=== PATIENT | female | born 2005 | race African-American/Black ===

== ENCOUNTER 2024-12-01 16:00 | Emergency (ER) | payer OTHER, SELFPAY ==
[2024-12-01 16:04] VITALS: BP 109/69
[2024-12-01 16:28] LABS: Hematocrit 40.5 % (37.0-47.0); Hemoglobin 13.4 g/dL (12.0-16.0); Mean Corp Hgb Conc. 33.1 g/dL (33.0-37.0); Mean Corpuscular Volume 84.0 fL (81.0-99.0); Nucleated Red Blood Cells % 0 %; Platelet Count 239 10^3/uL (130-400); Red Cell Dist. Width 12.3 % (11.5-14.5)
[2024-12-01 16:41] LABS: ALT (SGPT) 30 U/L (0-35); AST (SGOT) 21 U/L (14-36); Albumin 4.5 g/dl (3.5-5.0); Alkaline Phosphatase 46 U/L (38-126); Blood Urea Nitrogen 15 mg/dl (7-17); Calcium 9.9 mg/dl (8.4-10.2); Carbon Dioxide 23 mmol/L (22-30); Chloride 109 mmol/L (98-107); Glucose 121 mg/dl (70-99); Potassium 4.1 mmol/L (3.5-5.1); Sodium 137 mmol/L (135-145); Total Protein 7.8 g/dl (6.3-8.2); eGFR > 60.00
[2024-12-01 16:51] LABS: Troponin I < 0.012 ng/ml
--- NOTE | 2024-12-01 18:58 | ED.GENMED ---
History of Present Illness
General
Chief Complaint: Dizziness
Source: patient
Exam Limitations: none
Time Seen by Provider: 12/01/24 18:41
History of Present Illness
History of Present Illness:
19yoF with a history of endometriosis and ADHD presenting for evaluation after a syncopal episode around 8am this morning. Patient was at work this morning when she started to feel nauseous. She ran to the bathroom and had an episode of vomiting.
She then urinated and was leaning forward to put her underwear back on. She started to feel lightheaded and lost consciousness. She denies any preceding chest pain, shortness of breath, or palpitations. She thought her symptoms may be from a
control pill that she recently started 18 days ago. She called her OBGYN and was instructed to go to the ED for evaluation. She is currently asymptomatic and denies any current dizziness.
Phy Exam
General Physical Exam
General Presentation: well appearing and no apparent distress
General Skin: warm and dry
General Habitus: normal
General Mental: alert
ENT Exam
ENT Exam: normocephalic
Cardiovascular Exam
Cardiovascular Exam: regular rate/rhythm, no edema and no murmur
Pulmonary Exam
Pulmonary Exam: lungs clear, no respiratory distress, no rales, no crackles, no rhonchi and no wheezing
Neurological Exam
Neurological Exam: alert
Cr Coma Scale
Eye Opening: Spontaneous
Verbal Response: Oriented
Motor Response: Obeys Commands
GCS Total Score: 15
Skin Exam
Skin Exam: normal color and warm/dry
Psychiatric Exam
Psychiatric Exam: normal mood/affect
Course
Orders/Labs/Results
Orders:
Orders
12/01/24 16:06
ECG [Electrocardiogram (*1)] Urgent
Reason for Study: Vertigo / Dizzy
EKG- Treatment ONCE
12/01/24 16:21
Complete Blood Count/With Diff Urgent
Comprehensive Metabolic Panel Urgent
HCG, Serum Qualitative Screen Urgent
Comment: ADD ON
Troponin I Urgent
12/01/24 18:44
Add On- LAB Urgent
Tests Added?: qualitative HCG
Abnormal Lab Results
12/01/24
16:21
Chloride 109 H mmol/L
(98-107)
Glucose 121 H mg/dl
(70-99)
12/01/24 16:21
12/01/24 16:21
Vital Signs
Initial and Last Documented VS:
Initial Vital Signs
Temp Pulse Resp BP Pulse Ox
98.1 F 74 20 109/69 99
12/01/24 16:04 12/01/24 16:04 12/01/24 16:04 12/01/24 16:04 12/01/24 16:04
Last Documented Vital Signs
Temp Pulse Resp BP Pulse Ox
98.1 F 81 19 101/62 99
12/01/24 16:04 12/01/24 19:46 12/01/24 19:46 12/01/24 19:46 12/01/24 19:46
MDM/Problems Addressed
Differential Diagnosis Includes:
19yoF here after a syncopal episode this morning. Occurred while she was bending over after urinating/vomiting. +Preceding dizziness. No CP/SOB/palpitations. Currently asymptomatic. VSS. She is well appearing in no distress. Exam reassuring.
Differential diagnosis includes: vasovagal syncope, micturition syncope, orthostasis, doubt cardiogenic, doubt PE given normal vitals and lack of dyspnea
Workup initiated in triage. Hemoglobin, glucose, and troponin normal. HCG added which is negative. EKG shows NSR without ischemic changes or ectopy. No indication for hospitalization. Advised f/u with PCP and patient discharged in stable condition.
*Pulse Oximetry
SaO2: 99
Oxygen Mode of Delivery: Room air
Patient hypoxic: no (99%)
*EKG
Interpreted by ED Provider?: Yes
EKG Intrepretation Date: 12/01/24
Heart Rate: 66
Rate: normal
Rhythm: sinus
[place]: normal axis
Interval: normal interval
QRS Pattern: normal QRS
Ischemia: no ischemia
*Critical Care Note
Total Time (30-74mins, 75-104mins- exclusive of procedures): Not Applicable
ED Attending Note
-
Portions of this chart may have been created with voice recognition software.� Occasional wrong word or��sound alike� substitutions may have occurred due to the inherent limitations of voice recognition software.
Discharge Plan
Departure
Patient Disposition: Home (Routine Discharge)
Date of Disposition: 12/01/24
Time of Disposition: 19:44
Patient with high blood pressure during this ER visit?: No
Discharge Problem:
Syncope
Instructions: Fainting in adults - ED discharge instructions
Referrals:
Ute Pérez DO [Family Provider, Family Practice]
Activity Restrictions/Additional Instructions:
Please follow-up with your family doctor this week. Return to the ER with any new or worsening symptoms.
Interventions
Interventions:
*Risk Screen - Suicide Last Done: 12/01/24 19:25
*General Assessment Last Done: 12/01/24 16:04
*Neglect/Abuse Screening Last Done: 12/01/24 19:25
*ED- Fall Risk Assessment Last Done: 12/01/24 19:25
*Nursing Disposition Last Done: 12/01/24 19:52
ED- Neurological Assessment Last Done: 12/01/24 19:24
ED Swallowing Screen Last Done: 12/01/24 19:24
Discharge Date and Time
Discharge Date/Time: 12/01/24 19:52
Print Language: JAPANESE
[2024-12-01 19:30] LABS: HCG, Serum Qualitative Screen Negative
[2024-12-01 19:46] VITALS: BP 101/62
== END 2024-12-01 19:52 | disposition home or self-care (01) ==
LOC: EMR 16:00
PROVIDERS: Emergency Medicine; EMERGENCY PHYSICIAN Emergency Medicine; FAMILY PHYSICIAN Family Medicine
DX: R55 Syncope and collapse (principal); R11.2 Nausea with vomiting, unspecified; F90.9 Attention-deficit hyperactivity disorder, unspecified type; N80.9 Endometriosis, unspecified
CPT/HCPCS: 99283; 80053; 84484; 84703; 85025; 93005